=== PATIENT | male | born 1990 | race Caucasian/White ===

== ENCOUNTER 2023-07-29 12:48 | Outpatient (AMB) | payer OTHER, SELFPAY ==
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
[2023-07-29 13:11] VITALS: BP 130/60; PULSE 69; TEMP 36.6; O2SAT 97; BMI 22.3
== END 2023-07-29 14:25 | disposition home or self-care (01) ==
PROVIDERS: PCP Physician Assistant; Visit Provider Nurse Practitioner Family
DX: M25.511 Pain in right shoulder (principal)
CPT/HCPCS: 99204

== ENCOUNTER 2023-07-29 13:39 | Outpatient (REF) | payer OTHER, SELFPAY ==
--- NOTE | ~2023-07-29 | XR_ITS ---
EXAMINATION: XR SHOULDER, RIGHT CLINICAL INFORMATION: Right shoulder pain and trauma COMPARISON: None available. TECHNIQUE: AP external rotation, Grashey, scapular Y views of the right shoulder. FINDINGS: The bones and soft tissues are normal. No fracture. Glenohumeral and acromioclavicular alignment is anatomic with normal joint space. No abnormal soft tissue calcifications. XR/XR shoulder RT min 2V IMPRESSION: Unremarkable plain radiographs of the right shoulder.
== END 2023-07-29 13:40 | disposition home or self-care (01) ==
LOC: HO.HMGCX 13:39
PROVIDERS: PCP Physician Assistant; Visit Provider Nurse Practitioner Family
DX: M25.511 Pain in right shoulder (principal)
CPT/HCPCS: 73030